=== PATIENT | female | born 1955 | race Two or more races ===

== ENCOUNTER 2023-12-15 17:26 | Emergency (ER) | payer MEDICARE, OTHER ==
[~2023-12-15] VITALS: Ht 154.9 cm; Wt 70.0 kg
[2023-12-15 19:45] LABS: Rapid Influenza A Negative (Negative); Rapid Influenza B Negative (Negative)
[2023-12-15 19:47] LABS: COVID19 ANTIGEN SOFIA FIA NEGATIVE (NEGATIVE)
[2023-12-15] MEDS ORDERED: PROM1SOL4 PO (20:33)
[2023-12-15] MEDS ORDERED: CLON0.1T PO (20:33)
[2023-12-15] MEDS ORDERED: MONT10TA23 PO (20:33)
[2023-12-16] MEDS: cloNIDine HCL 0.1 MG TAB PO ONE (05:56)
[2023-12-16 07:33] VITALS: BP 122/62; PULSE 85; RESP 16; TEMP 97.5; O2SAT 97
== END 2023-12-16 08:00 | disposition home or self-care (01) ==
LOC: ER 17:35
DX: I10 Essential (primary) hypertension (principal); J06.9 Acute upper respiratory infection, unspecified; Z20.822 Contact with and (suspected) exposure to COVID-19
CPT/HCPCS: 36415; 87426; 87804